=== PATIENT | female | born 1995 | race African-American/Black ===

== ENCOUNTER 2018-05-02 13:46 | Emergency (ER) | payer OTHER ==
[2018-05-02] MEDS: HYDROCODONE/APAP (5/325) TAB PO (14:29)
== END 2018-05-02 14:35 | disposition home or self-care (01) ==
LOC: FTE 13:46
DX: K08.89 Other specified disorders of teeth and supporting structures (principal); Z87.891 Personal history of nicotine dependence
CPT/HCPCS: 99283; Z7502